=== PATIENT | female | born 1965 | race Caucasian/White ===

== ENCOUNTER 2017-05-07 15:49 | Emergency (ER) | payer SELFPAY ==
[~2017-05-07] VITALS: Ht 162.6 cm; Wt 72.0 kg
[~2017-05-07 15:49] MED LIST: HYDR-3498 PO; POLY10DR RIGHT EYE
[2017-05-07 15:51] VITALS: Ht 162.6 cm; Wt 72.0 kg
[2017-05-07] MEDS ORDERED: KETOROLAC 60 MG INJ ONE (17:58)
[2017-05-07] MEDS ORDERED: KETOROLAC 30 MG INJ IM STA (19:12)
--- NOTE | 2017-05-07 19:12 | ERD ---
ER Documentation Chief Complaint Chief Complaint B/L HEEL PAIN X 3 WEEKS , DENIES TRAUMA HPI 51-year-old female comes with bilateral heel pain, worse on the left side for the past 3 weeks. She describes it as sharp and achy, worse with weightbearing better at rest and moderate pain. She has been trying Tylenol and ibuprofen at home. 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 She denies any recent trauma, fevers or chills. ROS All systems reviewed and are negative except as per history of present illness. Medications Home Meds Active Scripts Hydrocodone Bit-Acetaminophen* ([place]*) 5-325 Mg Tab, 1 TAB PO Q6 Y for PAIN, # 7 TAB Prov:WILMA JENKINS DO 04/05/15 Polymyxin/Trimethoprim* ([place]* Eye Drops) 10 Ml Drops, 1 DROP RIGHT EYE Q3H , #1 EA Prov:WILMA JENKINS DO 04/05/15 PMhx/Soc Hx Alcohol Use: No Hx Substance Use: No Hx Tobacco Use: No Physical Exam Vitals Vital Signs Date Time Temp Pulse Resp B/P Pulse Ox O2 Delivery O2 Flow Rate FiO2 05/07/17 15:51 97.9 102 18 133/61 98 Physical Exam General: Well-developed, well-nourished. The patient appears in no acute distress. HEENT: Head is normocephalic, atraumatic. No scleral icterus. Neck: Supple. Nontender. Lungs: Clear to auscultation. Normal air movement. Heart: Regular rate and rhythm. S1 and S2 are normal. No murmurs, gallops, or rubs. Abdomen: Nondistended. Extremities: No clubbing or cyanosis. Moving extremities x 4. No weakness. Neurologic: Alert and oriented 3. No focal deficits. Normal speech and gait. Skin: Normal turgor. No rash or lesions. Procedures/MDM 51-year-old female comes in with bilateral heel pain, most consistent with plantar fasciitis. There is no evidence of osseous abnormalities, evidence of ulcer, cellulitis, DVT. Departure Diagnosis: Primary Impression: Foot pain Condition: Good KAREN GODDARD PA-C May 07, 2017 19:15
--- NOTE | 2017-05-07 19:12 | ERD ---
ER Documentation Chief Complaint Chief Complaint B/L HEEL PAIN X 3 WEEKS , DENIES TRAUMA HPI 51-year-old female comes with bilateral heel pain, worse on the left side for the past 3 weeks. She describes it as sharp and achy, worse with weightbearing better at rest and moderate pain. She has been trying Tylenol and ibuprofen at home. 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 She denies any recent trauma, fevers or chills. ROS All systems reviewed and are negative except as per history of present illness. Medications Home Meds Active Scripts Hydrocodone Bit-Acetaminophen* ([place]*) 5-325 Mg Tab, 1 TAB PO Q6 Y for PAIN, # 7 TAB Prov:WILMA JENKINS DO 04/05/15 Polymyxin/Trimethoprim* ([place]* Eye Drops) 10 Ml Drops, 1 DROP RIGHT EYE Q3H , #1 EA Prov:WILMA JENKINS DO 04/05/15 PMhx/Soc Hx Alcohol Use: No Hx Substance Use: No Hx Tobacco Use: No Physical Exam Vitals Vital Signs Date Time Temp Pulse Resp B/P Pulse Ox O2 Delivery O2 Flow Rate FiO2 05/07/17 15:51 97.9 102 18 133/61 98 Physical Exam General: Well-developed, well-nourished. The patient appears in no acute distress. HEENT: Head is normocephalic, atraumatic. No scleral icterus. Neck: Supple. Nontender. Lungs: Clear to auscultation. Normal air movement. Heart: Regular rate and rhythm. S1 and S2 are normal. No murmurs, gallops, or rubs. Abdomen: Nondistended. Extremities: No clubbing or cyanosis. Moving extremities x 4. No weakness. Neurologic: Alert and oriented 3. No focal deficits. Normal speech and gait. Skin: Normal turgor. No rash or lesions. Procedures/MDM 51-year-old female comes in with bilateral heel pain, most consistent with plantar fasciitis. There is no evidence of osseous abnormalities, evidence of ulcer, cellulitis, DVT. Departure Diagnosis: Primary Impression: Foot pain Condition: Good KAREN GODDARD PA-C May 07, 2017 19:15
--- NOTE | 2017-05-07 19:12 | ERD ---
ER Documentation Chief Complaint Chief Complaint B/L HEEL PAIN X 3 WEEKS , DENIES TRAUMA HPI 51-year-old female comes with bilateral heel pain, worse on the left side for the past 3 weeks. She describes it as sharp and achy, worse with weightbearing better at rest and moderate pain. She has been trying Tylenol and ibuprofen at home. 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 She denies any recent trauma, fevers or chills. ROS All systems reviewed and are negative except as per history of present illness. Medications Home Meds Active Scripts Hydrocodone Bit-Acetaminophen* ([place]*) 5-325 Mg Tab, 1 TAB PO Q6 Y for PAIN, # 7 TAB Prov:WILMA JENKINS DO 04/05/15 Polymyxin/Trimethoprim* ([place]trim* Eye Drops) 10 Ml Drops, 1 DROP RIGHT EYE Q3H , #1 EA Prov:WILMA JENKINS DO 04/05/15 PMhx/Soc Hx Alcohol Use: No Hx Substance Use: No Hx Tobacco Use: No Physical Exam Vitals Vital Signs Date Time Temp Pulse Resp B/P Pulse Ox O2 Delivery O2 Flow Rate FiO2 05/07/17 15:51 97.9 102 18 133/61 98 Physical Exam General: Well-developed, well-nourished. The patient appears in no acute distress. HEENT: Head is normocephalic, atraumatic. No scleral icterus. Neck: Supple. Nontender. Lungs: Clear to auscultation. Normal air movement. Heart: Regular rate and rhythm. S1 and S2 are normal. No murmurs, gallops, or rubs. Abdomen: Nondistended. Extremities: No clubbing or cyanosis. Moving extremities x 4. No weakness. Neurologic: Alert and oriented 3. No focal deficits. Normal speech and gait. Skin: Normal turgor. No rash or lesions. Procedures/MDM 51-year-old female comes in with bilateral heel pain, most consistent with plantar fasciitis. There is no evidence of osseous abnormalities, evidence of ulcer, cellulitis, DVT. Departure Diagnosis: Primary Impression: Foot pain Condition: Good KAREN GODDARD PA-C May 07, 2017 19:15
== END 2017-05-07 19:07 | disposition home or self-care (01) ==
LOC: FTE 15:49 → E/R 19:07
DX: M72.2 Plantar fascial fibromatosis (principal)
CPT/HCPCS: 96372; 99284; J1885